=== PATIENT | female | born 1965 | race Caucasian/White ===

== ENCOUNTER → 2017-03-19 | Outpatient (CLI) | payer OTHER ==
--- NOTE | 2017-03-20 07:40 | BD ---
EXAMINATION TYPE: MG DEXA axial skeleton. DATE OF EXAM: 03/19/2017 COMPARISON: 09.18.2014 CLINICAL HISTORY: 51 YR OLD FEMALE: ICD-10 CODE: Z79.890 POST MENOPAUSAL, C50.819 OSTEOPENIA, M85 .8 Height: 62.3 Weight: 204 FRAX RISK QUESTIONS: Alcohol (3 or more units per day): NO Family History (Parent hip fracture): NO Glucocorticoids (More than 3mos): NO (Ex: prednisone, prednisolone, methylprednisolone, dexamethasone, and hydrocortisone). History of Fracture in Adulthood: NO Secondary Osteoporosis: YES 1. Type 1 Diabetes: NO 2. Hyperthyroidism: NO 3. Menopause before 45: YES 4. Malnutrition: NO 5. Chronic liver disease: NO Rheumatoid Arthritis: NO Current Tobacco Use: YES, 1/2 PAC DAILY RISK FACTORS HISTORY OF: Family History of Osteoporosis: NO Active: TRY TO BE, BACK PAIN PREVENTS Diet low in dairy products/other sources of calcium: NO Postmenopausal woman: YES, COMPLETE HYST 9 YRS AGO...AGE 42 Lost more than 2 inches in height since high school: NO Hyperparathyroidism: NO Adrenal Insufficiency: NO MEDICATIONS: Prednisone or other steroids: INHALER PRN How Long: FOR YRS Additional Medications: BP MEDS, CELEXA, CALCIUM AND VIT D, REFLUX MEDS PRN, Additional History: HYPERTENSION, HX OF BREAST CA RT BREAST X2....BILAT MASTECTOMY, NODES ON RT REMOV ED. EXAM MEASUREMENTS: Bone mineral densitometry was performed using the [employer] System. Bone mineral density as measured about the Lumbar spine is: ----- L1-L4(G/cm2): 0.985 T Score Values are as follows: ----- L1: -1.1 ----- L2: -2.5 ----- L3: -1.1 ----- L4: -2.0 ----- L1-L4: -1.6 Bone mineral density has: Decreased -2.5% since study of: 09.18.2014 Bone mineral density about the R hip (g/cm2): 0.937 Bone mineral density about the L hip (g/cm2): 0.974 T Score values are as follows: -----R Neck: -1.1 -----L Neck: -1.0 -----R Total: -0.6 -----L Total: -0.3 Bone mineral density has: Decreased -2.8% since study of: 09.18.2014 FRAX%S: THERE IS A 3.8% CHANCE FOR A MAJOR OSTEOPOROTIC FX AND A 0.4% FOR HIP FX.....PROBABILITY O F FX IN 10 YRS TIME IMPRESSION: Osteopenia lumbar spine. NOTE: T-SCORE=SD OF THE YOUNG ADULT MEAN.
== END ==
LOC: RADBDWWP 16:08
PROVIDERS: ATTEND Internal Medicine Hematology & Oncology
DX: M85.88 Other specified disorders of bone density and structure, other site (principal)
CPT/HCPCS: 77080

== ENCOUNTER 2017-07-16 08:10 | Emergency (ER) | payer OTHER ==
[2017-07-16 08:17] VITALS: RESP 18; TEMP 99.2
--- NOTE | 2017-07-16 08:36 | ED ---
General Adult HPI - General Chief complaint: Abdominal Pain Stated complaint: abd pain Time Seen by Provider: 07/16/17 08:28 Source: patient, RN notes reviewed, old records reviewed Mode of arrival: ambulatory Limitations: no limitations - History of Present Illness Initial comments: Patient's a 51-year-old female presented to the emergency room today with a chief complaint of abdominal pain on the right lower quadrant over the last 2 weeks. She states that she is been more active she's had to clean out her mother's house. She states that she began feeling some discomfort in the right lower side she was unsure if it was due to all the recent activity. She states it is worse with coughing, and certain movements. She states when she is lying still she is relatively comfortable. She does admit that she went to [facility] 2 days ago had lab work and a CT of the abdomen performed which was negative. She states that she was diagnosed with strep throat currently on amoxicillin. Patient denies any other complaints or symptoms. Patient denies any recent fever, chills, shortness of breath, chest pain, back pain, nausea or vomiting, numbness or tingling, dysuria or hematuria, constipation or diarrhea, headaches or visual changes, or any other complaints. - Related Data Home Medications Medication Instructions Recorded Confirmed Amoxicillin 500 mg PO BID 07/16/17 07/16/17 Anastrozole [Arimidex] 1 mg PO HS 07/16/17 07/16/17 Calcium Carbonate/Vitamin D3 1 tab PO HS 07/16/17 07/16/17 [Calcium 600-Vit D3 400 Caplet] Citalopram Hydrobromide [CeleXA] 40 mg PO HS 07/16/17 07/16/17 Lisinopril [Zestril] 5 mg PO HS 07/16/17 07/16/17 Loratadine 10 mg PO HS 07/16/17 07/16/17 Allergies Allergy/AdvReac Type Severity Reaction Status Date / Time erythromycin base AdvReac Nausea Verified 07/16/17 09:16 hydrocodone bitartrate AdvReac "knocks me Verified 07/16/17 09:16 [From Vicodin] out" hydromorphone HCl AdvReac Nausea Verified 07/16/17 09:16 [From Dilaudid] Review of Systems ROS Statement: Those systems with pertinent positive or pertinent negative responses have been documented in the HPI. ROS Other: All systems not noted in ROS Statement are negative. Past Medical History Past Medical History: Asthma, Cancer, Hyperlipidemia Additional Past Medical History / Comment(s): migraines, arthritis, frequent heartburn, lymphedema rt arm and hand, breast cancer History of Any Multi-Drug Resistant Organisms: None Reported Past Surgical History: Breast Surgery, Cholecystectomy, Hysterectomy, Tubal Ligation Additional Past Surgical History / Comment(s): rt breast lumpectomy Past Anesthesia/Blood Transfusion Reactions: Family History of Problems w/ Anesthesia, Postoperative Nausea & Vomiting (PONV) Additional Past Anesthesia/Blood Transfusion Reaction / Comment(s): father had cardiac arrest during a heart surgery years ago Past Psychological History: Anxiety Smoking Status: Current every day smoker Past Alcohol Use History: Rare Past Drug Use History: None Reported - Past Family History Mother Family Medical History: No Reported History General Exam - General Exam Comments Initial Comments: General: The patient is awake and alert, in no distress, and does not appear acutely ill. Eye: Pupils are equal, round and reactive to light, extra-ocular movements are intact. No nystagmus. There is normal conjunctiva bilaterally. No signs of icterus. Ears, nose, mouth and throat: There are moist mucous membranes and no oral lesions. Mild redness erythema to the posterior pharynx with positive exudate. Uvula midline. Tolerating oral secretions. Neck: The neck is supple, there is no tenderness or JVD. Cardiovascular: There is a regular rate and rhythm. No murmur, rub or gallop is appreciated. Respiratory: Lungs are clear to auscultation, respirations are non-labored, breath sounds are equal. No wheezes, stridor, rales, or rhonchi. Gastrointestinal: Abdomen soft on palpation. Does have tenderness right lower quadrant. No rebound tenderness or guarding. No CVA tenderness. Musculoskeletal: Normal ROM, no tenderness. Strength 5/5. Sensation intact. Pulses equal bilaterally 2+. Neurological: A&O x 3. CN II-XII intact, There are no obvious motor or sensory deficits. Coordination appears grossly intact. Speech is normal. Skin: Skin is warm and dry and no rashes or lesions are noted. Psychiatric: Cooperative, appropriate mood & affect, normal judgment. Limitations: no limitations Course Vital Signs 07/16/17 08:15 Temperature 99.2 F Pulse Rate 92 Respiratory 18 Rate Blood Pressure 131/77 O2 Sat by Pulse 95 Oximetry Medical Decision Making - Medical Decision Making Patient reexamined at this time shows no signs of distress. She is resting couple. Her labs were reviewed 11,000 white count today. Patient's labs and imaging report from [facility] was reviewed. It showed a fever of 102 at triage the other day. Did show a positive strep test. Has 17,[address] of the abdomen and pelvis that was performed with contrast shows no acute abnormalities. Showed a normal appendix. Patient's blood work reviewed today does show improved white count. No fever here. Is currently on antibiotics for a strep throat infection which she did test positive for the other day. At this times felt that her pain is mostly skeletal at is worse with certain movements when she coughs knees or sits up. She has been she's laying down she feels fine. Patient advised bruised area. Advised continue antibiotic as previously prescribed and follow-up family doctor over the next 2 days. - Lab Data Result diagrams: 07/16/17 09:19 07/16/17 09:19 Lab Results 07/16/17 07/16/17 07/16/17 Range/Units 08:35 08:35 09:19 WBC (3.8-10.6) k/uL RBC (3.80-5.40) m/uL Hgb (11.4-16.0) gm/dL Hct (34.0-46.0) % MCV (80.0-100.0) fL MCH (25.0-35.0) pg MCHC (31.0-37.0) g/dL RDW (11.5-15.5) % Plt Count (150-450) k/uL Neutrophils % % Lymphocytes % % Monocytes % % Eosinophils % % Basophils % % Neutrophils # (1.3-7.7) k/uL Lymphocytes # (1.0-4.8) k/uL Monocytes # (0-1.0) k/uL Eosinophils # (0-0.7) k/uL Basophils # (0-0.2) k/uL Sodium 143 (137-145) mmol/L Potassium 4.3 (3.5-5.1) mmol/L Chloride 108 H (98-107) mmol/L Carbon Dioxide 26 (22-30) mmol/L Anion Gap 9 mmol/L BUN 8 (7-17) mg/dL Creatinine 0.64 (0.52-1.04) mg/dL Est GFR (CKD-EPI)AfAm >90 (>60 ml/min/1.73 sqM) Est GFR (CKD-EPI)NonAf >90 (>60 ml/min/1.73 sqM) Glucose 90 (74-99) mg/dL Calcium 9.5 (8.4-10.2) mg/dL Total Bilirubin 0.3 (0.2-1.3) mg/dL AST 13 L (14-36) U/L ALT 25 (9-52) U/L Alkaline Phosphatase 93 (38-126) U/L Total Protein 6.7 (6.3-8.2) g/dL Albumin 4.0 (3.5-5.0) g/dL Amylase 48 (30-110) U/L Lipase 72 (23-300) U/L Urine Color Yellow Urine Appearance Cloudy H (Clear) Urine pH 8.0 (5.0-8.0) Ur Specific [place] 1.014 (1.001-1.035) Urine Protein Trace H (Negative) Urine Glucose (UA) Negative (Negative) Urine Ketones Negative (Negative) Urine Blood Trace H (Negative) Urine Nitrite Negative (Negative) Urine Bilirubin Negative (Negative) Urine Urobilinogen <2.0 (<2.0) mg/dL Ur Leukocyte Esterase Negative (Negative) Urine RBC 3 (0-5) /hpf Urine WBC 1 (0-5) /hpf Ur Squamous Epith Cells 1 (0-4) /hpf Urine Bacteria Rare H (None) /hpf Hyaline Casts 4 H (0-2) /lpf Urine Mucus Rare H (None) /hpf Urine HCG, Qual Not Detected (Not Detectd) 07/16/17 Range/Units 09:19 WBC 11.7 H (3.8-10.6) k/uL RBC 4.33 (3.80-5.40) m/uL Hgb 12.7 (11.4-16.0) gm/dL Hct 38.0 (34.0-46.0) % MCV 87.8 (80.0-100.0) fL MCH 29.3 (25.0-35.0) pg MCHC 33.3 (31.0-37.0) g/dL RDW 14.2 (11.5-15.5) % Plt Count 285 (150-450) k/uL Neutrophils % 73 % Lymphocytes % 18 % Monocytes % 5 % Eosinophils % 2 % Basophils % 0 % Neutrophils # 8.5 H (1.3-7.7) k/uL Lymphocytes # 2.2 (1.0-4.8) k/uL Monocytes # 0.6 (0-1.0) k/uL Eosinophils # 0.3 (0-0.7) k/uL Basophils # 0.0 (0-0.2) k/uL Sodium (137-145) mmol/L Potassium (3.5-5.1) mmol/L Chloride (98-107) mmol/L Carbon Dioxide (22-30) mmol/L Anion Gap mmol/L BUN (7-17) mg/dL Creatinine (0.52-1.04) mg/dL Est GFR (CKD-EPI)AfAm (>60 ml/min/1.73 sqM) Est GFR (CKD-EPI)NonAf (>60 ml/min/1.73 sqM) Glucose (74-99) mg/dL Calcium (8.4-10.2) mg/dL Total Bilirubin (0.2-1.3) mg/dL AST (14-36) U/L ALT (9-52) U/L Alkaline Phosphatase (38-126) U/L Total Protein (6.3-8.2) g/dL Albumin (3.5-5.0) g/dL Amylase (30-110) U/L Lipase (23-300) U/L Urine Color Urine Appearance (Clear) Urine pH (5.0-8.0) Ur Specific [place] (1.001-1.035) Urine Protein (Negative) Urine Glucose (UA) (Negative) Urine Ketones (Negative) Urine Blood (Negative) Urine Nitrite (Negative) Urine Bilirubin (Negative) Urine Urobilinogen (<2.0) mg/dL Ur Leukocyte Esterase (Negative) Urine RBC (0-5) /hpf Urine WBC (0-5) /hpf Ur Squamous Epith Cells (0-4) /hpf Urine Bacteria (None) /hpf Hyaline Casts (0-2) /lpf Urine Mucus (None) /hpf Urine HCG, Qual (Not Detectd) Disposition Clinical Impression: Abdominal pain Disposition: HOME SELF-CARE Condition: Good Instructions: Abdominal Pain (ED) Is patient prescribed a controlled substance at d/c from ED?: No Referrals: Miguel Mcbride MD [Primary Care Provider] - 1-2 days Time of Disposition: 10:19
[2017-07-16 08:57] LABS: Appearance,Urine Cloudy (Clear); Bacteria,Urine Rare /hpf; Bilirubin,Urine Negative (Negative); Blood,Urine Trace (Negative); Color,Urine Yellow; Glucose,Urine (UA) Negative (Negative); Hyaline Casts,Urine 4 /lpf (0-2); Ketones,Urine Negative (Negative); Leukocyte Esterase,Urine Negative (Negative); Mucus,Urine Rare /hpf; Nitrite,Urine Negative (Negative); Protein,Urine Trace (Negative); RBC,Urine 3 /hpf (0-5); Specific Gravity,Urine 1.014 (1.001-1.035); Squamous Epithelial Cell,Urine 1 /hpf (0-4); Urobilinogen,Urine <2.0 mg/dL (<2.0); WBC,Urine 1 /hpf (0-5)
[2017-07-16 09:35] LABS: Basophils % (A) 0 %; Eosinophils # (A) 0.3 k/uL (0-0.7); Eosinophils % (A) 2 %; HGB 12.7 gm/dL (11.4-16.0); Lymphocytes # (A) 2.2 k/uL (1.0-4.8); Lymphocytes % (A) 18 %; MCH 29.3 pg (25.0-35.0); MCHC 33.3 g/dL (31.0-37.0); MCV 87.8 fL (80.0-100.0); Mean Platelet Volume 6.7; Monocytes # (A) 0.6 k/uL (0-1.0); Monocytes % (A) 5 %; Neutrophils # (A) 8.5 k/uL (1.3-7.7); Neutrophils % (A) 73 %; Platelet Count 285 k/uL (150-450); RBC 4.33 m/uL (3.80-5.40); RDW 14.2 % (11.5-15.5); WBC 11.7 k/uL (3.8-10.6)
[2017-07-16 09:47] LABS: ALT 25 U/L (9-52); AST 13 U/L (14-36); Alkaline Phosphatase 93 U/L (38-126); Amylase 48 U/L (30-110); Anion Gap 9 mmol/L; Blood Urea Nitrogen 8 mg/dL (7-17); Calcium 9.5 mg/dL (8.4-10.2); Carbon Dioxide 26 mmol/L (22-30); Chloride 108 mmol/L (98-107); Glucose 90 mg/dL (74-99); Lipase 72 U/L (23-300); Potassium 4.3 mmol/L (3.5-5.1); Sodium 143 mmol/L (137-145); Total Bilirubin 0.3 mg/dL (0.2-1.3); Total Protein 6.7 g/dL (6.3-8.2)
[2017-07-16 10:34] VITALS: BP 153/77; PULSE 81
== END 2017-07-16 10:32 | disposition home or self-care (01) ==
LOC: EC 08:10
DX: R10.31 Right lower quadrant pain (principal); F41.9 Anxiety disorder, unspecified; F17.200 Nicotine dependence, unspecified, uncomplicated; Z85.3 Personal history of malignant neoplasm of breast; Z90.49 Acquired absence of other specified parts of digestive tract; Z90.710 Acquired absence of both cervix and uterus; Z98.51 Tubal ligation status; Z79.899 Other long term (current) drug therapy; Z88.1 Allergy status to other antibiotic agents; Z88.5 Allergy status to narcotic agent
CPT/HCPCS: 36415; 80053; 81001; 81025; 82150; 83690; 85025; 99284

== ENCOUNTER → 2019-03-31 | Outpatient (CLI) | payer OTHER ==
[2019-03-31 12:01] VITALS: BP 136/81; PULSE 87; RESP 20
--- NOTE | 2019-03-31 12:32 | P.PAINCN ---
History of Present Illness - Reason for Consult Consult date: 03/31/19 Back and neck pain, migraines - History of Present Illness Rosa is a 53-year-old female who presents today for a new patient consult secondary to low back pain. She reports pain across her low back with a VAS of 7 or 8 out of 10 most of the time. She finds pain with any activity but mostly with bending over. She finds pain across her low back and into both buttocks but denies any radicular symptoms down her legs, she denies any weakness or numbness or tingling in her legs or feet. She finds that this pain with standing for long present time but mostly with bending. She denies any bowel or bladder incontinence. She denies any numbness tingling or upper extremity weakness. She also reports tension across her neck and occiput along with migraine headaches 3-4 times a month. She reports she seen a neurologist for migraines in the past and was diagnosed with migraines. She is not on any type of repetitive or abortive therapy at this time. She feels his back pain is significantly inhibiting her daily activities, she has never had any injections. She has been to care process manager with transient relief. She has been in physical therapy in the past and reports that did not help and reports she still doing some of the activities daily. She reports she stays pretty active as she babysits shoulder every day. She does not have any formal exercise routine. MRI of the lumbar spine shows a normal spine from L1 through L4, there is a small grade 3 mm anterolisthesis of L5 and S1 with minimal disc bulging. There is no mention of any neural foraminal stenosis Review of Systems Negative except as mentioned in HPI Past Medical History Past Medical History: Asthma, Cancer, COPD, GERD/Reflux, Hyperlipidemia, Hypertension, Osteoarthritis (OA), Sleep Apnea/CPAP/BIPAP Additional Past Medical History / Comment(s): migraines, lymphedema rt arm and hand, breast cancer, NO C PAP MACHINE AT THIS TIME History of Any Multi-Drug Resistant Organisms: None Reported Past Surgical History: Breast Surgery, Cholecystectomy, Hysterectomy, Tubal Ligation Additional Past Surgical History / Comment(s): rt breast lumpectomy 2002, BILATERAL MASTECTOMY 2014, LYMPH NODES REMOVED FROM RIGHT ARM Past Anesthesia/Blood Transfusion Reactions: Family History of Problems w/ Anesthesia, Postoperative Nausea & Vomiting (PONV) Additional Past Anesthesia/Blood Transfusion Reaction / Comm: father had cardiac arrest during a heart surgery years ago Smoking Status: Current every day smoker - Past Family History Mother Family Medical History: No Reported History Medications and Allergies Home Medications Medication Instructions Recorded Confirmed Type Anastrozole [Arimidex] 1 mg PO HS 07/16/17 03/31/19 History Citalopram Hydrobromide [CeleXA] 40 mg PO HS 07/16/17 03/31/19 History Lisinopril [Zestril] 5 mg PO HS 07/16/17 03/31/19 History ALPRAZolam [Xanax] 0.5 mg PO BID PRN 03/25/19 03/31/19 History Acetaminophen [Tylenol Extra 1,000 mg PO Q4H PRN 03/25/19 03/31/19 History Strength] Albuterol Sulfate [Proair 2 puff INHALATION Q4H PRN 03/25/19 03/31/19 History Digihaler] Cetirizine HCl [Zyrtec] 10 mg PO DAILY 03/25/19 03/31/19 History Cyclobenzaprine [Flexeril] 10 mg PO BID 03/25/19 03/31/19 History Fluticasone Nasal [place] [Flonase 2 spr EA NOSTRIL BID 03/25/19 03/31/19 History Nasal [place]] Omeprazole 20 mg PO BID 03/25/19 03/31/19 History Sucralfate [Carafate] 1 gm PO TID 03/25/19 03/31/19 History buPROPion [Wellbutrin] 100 mg PO DAILY 03/25/19 03/31/19 History Umeclidinium [place] [Incruse 1 tab PO DAILY 03/31/19 03/31/19 History Ellipta] Allergies Allergy/AdvReac Type Severity Reaction Status Date / Time erythromycin base AdvReac Nausea Verified 07/16/17 09:16 hydromorphone HCl AdvReac Nausea Verified 07/16/17 09:16 [From Dilaudid] Physical Exam Vitals: Vital Signs Pulse Resp BP Pulse Ox 03/31/19 11:51 87 20 136/81 97 General: Awake and alert oriented 3 no distress, obese Respiratory exam: No audible wheezing no accessory muscle usage Cardiovascular exam: regular rate, palpable bilateral pulses, no lower extremity edema Abdominal exam: No distention nontender to palpation, obese Cervical spine: Normal alignment, Spurling's negative, facet loading negative, Bending Roll Operator strength is 5/5, kimble negative Lumbar spine: Obese midline, atrophy of the paraspinal muscles and gluteal muscles. There is loss of lumbar lordosis. The skin is normal and midline. There is no tenderness to palpation over the lumbar spine, no tenderness to palpation over the paraspinal muscles. Straight leg raise causes pain in the low back bilaterally but no radicular symptoms. There is good movement of the hip joints bilaterally. There is tightness in the hamstring muscles as well as in the iliotibial band. Hip flexors appear to be normal with good release. Sacroiliac joints: There is minimal tenderness over palpation of the SI joints bilaterally, Shan test positive bilateral, Gaenslen's positive bilateral. Neuro exam: Normal sensation in bilateral upper extremities, deep tendon reflexes are 2+ bilateral upper extremities. Normal sensation in bilateral lower extremities. Deep tendon reflexes are 2+ in lower extremities Psych exam: Cooperative, appropriate mood Assessment and Plan Assessment: Lumbar degenerative disc disease Sacroiliitis Obesity Plan: After review of the medical records, imaging and examination the patient I believe the patient has pain associated with lumbar degenerative disc disease and possibly sacroiliitis. At this point I have offered the patient conservative therapy which includes physical therapy, daily stretching and exercise. She has been in physical therapy without good relief as well as care process manager. She is tried conservative therapy and like to move forward with minimally invasive injections. We discussed performing a lumbar epidural steroid injection at the L5-S1 level, we discussed the procedure in detail with the patient and her son and she like to move forward with that. We'll schedule for the injection as soon as possible. If she does not have good relief from the epidural steroid injection she may benefit from sacroiliac joint injections bilaterally. PQRS Measure Charge Sheet Measure #130: Documentation of Current Meds in Medical Chart: Patient's medications documented in chart Measure #47: Advance Care Plan: Advance care planning discussed & documented, plan or surrogate given Measure #412: Opioid Treatment Agreement: No documentation of signed opioid treatment agreement Measure #408: Opioid Therapy Follow-up Evaluation: Patient had NO f/u eval minimum every 3 months during opioid therapy Measure #317: Preventitive Care & Scrn High Bld Press & F/U: Normal blood pressure, f/u not required Measure #128: Body Mass Index (BMI) Screening & Follow-up: BMI documented ABOVE normal parameters - f/u documented PQRS Narrative: Smoking Status Current every day smoker Blood Pressure 136/81 Pain Intensity [Back] 7 Scale Used Numeric (1 - 10) Hx Alcohol Use (MH) Yes: RARE Home Medications: Ambulatory Orders Anastrozole [Arimidex] 1 mg PO HS 07/16/17 Citalopram Hydrobromide [CeleXA] 40 mg PO HS 07/16/17 Lisinopril [Zestril] 5 mg PO HS 07/16/17 ALPRAZolam [Xanax] 0.5 mg PO BID PRN 03/25/19 Acetaminophen [Tylenol Extra Strength] 1,000 mg PO Q4H PRN 03/25/19 Albuterol Sulfate [Proair Digihaler] 2 puff INHALATION Q4H PRN 03/25/19 Cetirizine HCl [Zyrtec] 10 mg PO DAILY 03/25/19 Cyclobenzaprine [Flexeril] 10 mg PO BID 03/25/19 Fluticasone Nasal [place] [Flonase Nasal [place]] 2 spr EA NOSTRIL BID 03/25/19 Omeprazole 20 mg PO BID 03/25/19 Sucralfate [Carafate] 1 gm PO TID 03/25/19 buPROPion [Wellbutrin] 100 mg PO DAILY 03/25/19 Umeclidinium [place] [Incruse Ellipta] 1 tab PO DAILY 03/31/19
== END | disposition home or self-care (01) ==
LOC: PNWHC3 11:42
PROVIDERS: ATTEND Hospitalist
DX: M51.36 Other intervertebral disc degeneration, lumbar region (principal); E66.9 Obesity, unspecified; M46.1 Sacroiliitis, not elsewhere classified; F17.200 Nicotine dependence, unspecified, uncomplicated; Z68.39 Body mass index [BMI] 39.0-39.9, adult; Z79.899 Other long term (current) drug therapy; Z88.1 Allergy status to other antibiotic agents; Z88.5 Allergy status to narcotic agent
CPT/HCPCS: 99201

== ENCOUNTER → 2019-04-28 | Outpatient (CLI) | payer OTHER | END | disposition home or self-care (01) | CPT/HCPCS: 99211 ==

== ENCOUNTER 2019-07-09 12:58 | Emergency (ER) | payer OTHER ==
[2019-07-09] MEDS ORDERED: ACETAMINOPHEN TAB 500 MG TAB PO STA (13:12)
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
--- NOTE | 2019-07-09 13:43 | XR ---
EXAMINATION TYPE: XR elbow complete RT DATE OF EXAM: 07/09/2019 CLINICAL HISTORY: Pain after fall injury. TECHNIQUE: Frontal, lateral and oblique images of the right elbow are obtained. COMPARISON: None FINDINGS: There is no acute fracture/dislocation evident in the right elbow. No abnormal fat pad si gns are seen. The overlying soft tissue appears unremarkable. IMPRESSION: There is no acute fracture or dislocation in the right elbow.
[2019-07-09 14:31] VITALS: BP 130/77; PULSE 87; RESP 17; TEMP 98
== END 2019-07-09 14:31 | disposition home or self-care (01) ==
LOC: EC 12:58
DX: S50.01XA Contusion of right elbow, initial encounter (principal); J44.9 Chronic obstructive pulmonary disease, unspecified; K21.9 Gastro-esophageal reflux disease without esophagitis; I10 Essential (primary) hypertension; G47.30 Sleep apnea, unspecified; F41.9 Anxiety disorder, unspecified; F32.9 Major depressive disorder, single episode, unspecified; F17.200 Nicotine dependence, unspecified, uncomplicated; Z79.899 Other long term (current) drug therapy; Z79.51 Long term (current) use of inhaled steroids; Z88.1 Allergy status to other antibiotic agents; Z88.5 Allergy status to narcotic agent; Z99.89 Dependence on other enabling machines and devices; Z85.3 Personal history of malignant neoplasm of breast; Z90.13 Acquired absence of bilateral breasts and nipples; W01.0XXA Fall on same level from slipping, tripping and stumbling without subsequent striking against object, initial encounter; Y93.55 Activity, bike riding
CPT/HCPCS: 99283

== ENCOUNTER → 2019-07-11 | Outpatient (CLI) | payer OTHER | END | disposition home or self-care (01) | LOC: LABWHC1 14:12 | PROVIDERS: ATTEND Family Medicine | DX: Z11.59 Encounter for screening for other viral diseases (principal) ==

== ENCOUNTER 2019-07-15 07:44 | Day surgery (SDC) | payer OTHER ==
[2019-07-14 12:50] VITALS: BMI 37.5
[~2019-07-15 07:44] MED LIST: LACTATED RINGERS 1,000 ML IV SCH
[2019-07-15 08:04] VITALS: TEMP 96.7
[2019-07-15] MEDS ORDERED: LIDOCAINE 1% (10MG/ML) FOR IV START SQ ONE (08:09)
[2019-07-15] MEDS ORDERED: methylPREDNISolone ACETATE 40 MG/ML 1 ML VIAL ONE (08:14)
[2019-07-15] MEDS ORDERED: MIDAZOLAM 2 MG/2 ML VIAL ONE (08:14)
[2019-07-15] MEDS ORDERED: BUPIVACAINE (PF) 0.5% 30 ML VIAL ONE (08:14)
--- NOTE | 2019-07-15 08:15 | P.PCN ---
Date of Procedure: 07/15/19 Description of Procedure: Procedure: BILATERAL L3-4, L4-5, L5-S1 Diagnosis: Lumbar spondylosis without myelopathy Anesthesia: Local and IV conscious sedation Imaging: Fluoroscopy was used, images where saved to the medical record The patient was seen and examined in the [facility]. Procedure risks and benefits were fully reviewed with the patient. The patient understands this is a diagnostic if local only is used, as will be the case today. The goal of the procedure is to inject medication onto the medial branch or small nerves that innervate the facet joints. In this way, we can hopefully identify which of these joints, if any, may be contributing to their pain. Informed consent for procedure was obtained. The patient was taken into the office fluoroscopy procedure room and placed prone on the table. A pillow was placed under the abdomen to reduce lumbar lordosis. Vital signs were closely monitored during the procedure. The skin over the area was prepped with Betadine X 3 and draped in usual sterile manner. Sterile technique was observed throughout procedure. Under biplanar fluoroscopic guidance, the target injection area of the L4, L5, Sacral Ala were targeted. A 25 gauge 31/2 inch spinal needle was then placed at the most medial and superior aspect of the transverse process near the "eye of the Adal dog". Aspiration for blood was negative. 1 cc of 0.5% Ropivacaine was injected into the targeted areas separately. [place] were withdrawn intact. No complications were noted during the procedure. The patient tolerated the procedure well. The patient was placed in supine position and transferred to the recovery area for observation and remained stable until discharged home. Home discharge instructions were given to the patient by the staff. The patient will schedule a follow up as directed.
[2019-07-15] MEDS ORDERED: IV FLUID CONTINUATION 750 ML IV ONE (08:33)
[2019-07-15 08:56] VITALS: BP 103/72; PULSE 83; RESP 18
--- NOTE | 2019-07-15 09:05 | FL ---
EXAMINATION TYPE: FL guided pain mgmt statistic DATE OF EXAM: 07/15/2019 CLINICAL HISTORY: Low back pain. TECHNIQUE: Fluoroscopy. COMPARISON: None. FINDINGS: Fluoroscopic guidance was provided during pain relief procedure performed by Dr. Chinchilla. A total of 8 seconds of fluoroscopic time was utilized during the procedure and 5 spot images are ac quired. Images acquired shows needle localization at multiple levels of the lumbar spine. IMPRESSION: As Above.
== END 2019-07-15 09:03 | disposition home or self-care (01) ==
LOC: ORPAIN 07:44
PROVIDERS: ATTEND Hospitalist
DX: M47.816 Spondylosis without myelopathy or radiculopathy, lumbar region (principal); Z88.1 Allergy status to other antibiotic agents; Z88.5 Allergy status to narcotic agent
CPT/HCPCS: 64493; 64494; 64495; J2250; J1030; 99152

== ENCOUNTER 2019-08-05 09:30 | Day surgery (SDC) | payer OTHER ==
[2019-08-04 12:36] VITALS: BMI 37.2
[2019-08-05] MEDS ORDERED: LACTATED RINGERS 1,000 ML IV SCH (09:37)
[2019-08-05 09:48] VITALS: TEMP 96.1
[2019-08-05] MEDS ORDERED: LIDOCAINE 1% (10MG/ML) FOR IV START INTRADERMA ONE (09:55)
[2019-08-05] MEDS ORDERED: fentaNYL (PF) 50 MCG/ML 2 ML AMP ONE (10:02)
[2019-08-05] MEDS ORDERED: MIDAZOLAM 2 MG/2 ML VIAL ONE (10:02)
[2019-08-05] MEDS ORDERED: ROPIVACAINE 5MG/ML 20ML VIAL ONE (10:02)
[2019-08-05] MEDS ORDERED: methylPREDNISolone ACETATE 40 MG/ML 1 ML VIAL ONE (10:02)
[2019-08-05] MEDS ORDERED: IV FLUID CONTINUATION 1,000 ML IV ONE (10:28)
--- NOTE | 2019-08-05 10:30 | P.PCN ---
Date of Procedure: 08/05/19 Procedure(s) Performed: PREOPERATIVE DIAGNOSIS : 1- Lumbar spondylosis with Facet Arthropathy without myelopathy . POSTOPERATIVE DIAGNOSIS: 1- Lumbar spondylosis with Facet Arthropathy without myelopathy . PROCEDURE: Diagnostic bilateral L3 , L4 , and L5 medial branch block under fluoroscopy guidance(fluoroscopy images available in the radiology Department ) ( To target the facet joint between L4-5 , and L5-S1 ) ANESTHESIA:, moderate sedation with intravenous Versed 2 mg and Fentanyl 50 mcg. EBL: Minimal COMPLICATION: None. IV FLUIDS: 100 mL of normal saline. PROCEDURE INDICATION: Chronic low back pain secondary to Facet arthropathy unresponsive to conservative treatment. PROCEDURE DESCRIPTION: the patient was seen and identified in the preop holding area , risks and benefits and possible complications of the procedure and alternative were discussed with the patient, and the patient agreed to proceed with the procedure and signed the consent IV was started and vital signs monitored during the procedure and fluoroscopy was used to maximize the benefit and accuracy of the needle placement, and sedation was given to decrease patient anxiety, patient was taken to the procedure room and placed in prone position vital signs monitored in the back prepped with chlorhexidine X3 then under strict sterile technique using a right oblique fluoroscopy ,the junction of the transverse process and the superior articulating process of the right L3 , L4 , and L5 vertebra which corresponding to the fluoroscopy image of the eye of the Adal dog on the block side for the medial branches and subsequently , after local infiltration of skin and subcu tissuies with Ropivacaine 0.5 % , one mL at each level ,then 22-gauge Quincke-type 3.5 inches long needles , 3 needle was used , each one of them placed at the junction of the base of the transverse process and the superior articular process at the appropriate level, and the needle was advanced until the periosteum contacted, needle placement confirmed with AP oblique and lateral view and after appropriate needle placement confirmed, and after negative aspiration for heme and CSF and there was no paresthesia 1-1/2 mL of Ropivacaine 0.5% mixed with 20 mg Depo-Medrol , then half mL injected at each level after negative aspiration the needle subsequently removed and the same procedure repeated for the left side at left side at L3 , L4 and L5 levels. At the end of the procedure and the needles removed and a bandage applied after the skin was cleaned the cleaning solution patient taken to recovery room in stable condition and monitors in the recovery room for 20-30 minutes and discharged home in stable condition after discharge criteria met and patient will follow up with the pain clinic in 2-4 weeks
[2019-08-05 10:53] VITALS: BP 123/78; PULSE 67; RESP 18
--- NOTE | 2019-08-05 10:54 | FL ---
EXAMINATION TYPE: FL guided pain mgmt statistic DATE OF EXAM: 08/05/2019 CLINICAL HISTORY: Low back pain. TECHNIQUE: Fluoroscopy. COMPARISON: None. FINDINGS: Fluoroscopic guidance was provided during pain relief procedure performed by Dr. Persaud . A total of 39 seconds of fluoroscopic time was utilized during the procedure and four spot intraop erative fluoroscopic images are acquired. Images acquired shows needle localization at several leve ls in the lumbar spine bilaterally. IMPRESSION: As Above.
== END 2019-08-05 11:01 | disposition home or self-care (01) ==
LOC: ORPAIN 09:30
PROVIDERS: ATTEND Specialist
DX: G89.29 Other chronic pain (principal); M47.816 Spondylosis without myelopathy or radiculopathy, lumbar region; M51.36 Other intervertebral disc degeneration, lumbar region; Z88.1 Allergy status to other antibiotic agents; Z88.5 Allergy status to narcotic agent
CPT/HCPCS: 64493; 64494; J2250; J1030; J3010; J2795; 99152

== ENCOUNTER → 2019-08-14 | Outpatient (CLI) | payer OTHER ==
--- NOTE | 2019-08-14 09:37 | BD ---
EXAMINATION TYPE: Axial Bone Density DATE OF EXAM: 08/14/2019 COMPARISON: NONE CLINICAL HISTORY: 53-year-old female C50.819, breast cancer Height: 62.5 IN Weight: 206 LBS FRAX RISK QUESTIONS: Secondary Osteoporosis: 3. Menopause before 45: YES AGE 42 TOTAL HYST Current Tobacco Use: YES RISK FACTORS HISTORY OF: Active: YES Postmenopausal woman: AGE 42 TOTAL HYST MEDICATIONS: Additional Medications: CALCIUM, VIT D, BLOOD PRESSURE MED, FLEXERIL, CELEXA, XANAX, TYLENOL, INHALER , ANTIDEPRESSANT, HEARTBURN MEDS, FLONASE, ARIMIDEX Additional History: BREAST CANCER TWICE EXAM MEASUREMENTS: Bone mineral densitometry was performed using the [employer] System. Bone mineral density as measured about the Lumbar spine is: ----- L1-L4(G/cm2): 0.902 T Score Values are as follows: ----- L2: -2.2 ----- L3: -2.4 ----- L4: -2.8 ----- L2-L4: -2.5 Bone mineral density has: Decreased -8.0% since study of: 03/19/2017 Bone mineral density about the R hip (g/cm2): 0.852 Bone mineral density about the L hip (g/cm2): 0.899 T Score values are as follows: -----R Neck: -1.3 -----L Neck: -1.0 -----R Total: -0.6 -----L Total: -0.4 Bone mineral density has: Decreased -1.2% since study of: 03/19/2017 IMPRESSION: Osteoporosis (T Score less than -2.5) as measured in the lumbar spine (averaged L2-L4). There is increased fracture risk and therapy is usually indicated based on age. Re-Screen 1-2 years. NOTE: T-SCORE=SD OF THE YOUNG ADULT MEAN.
== END | disposition home or self-care (01) ==
LOC: RADBDWWP 08:08
PROVIDERS: ATTEND Internal Medicine Hematology & Oncology
DX: M81.0 Age-related osteoporosis without current pathological fracture (principal); C50.819 Malignant neoplasm of overlapping sites of unspecified female breast; Z88.1 Allergy status to other antibiotic agents
CPT/HCPCS: 77080

== ENCOUNTER → 2019-08-27 | Outpatient (CLI) | payer OTHER ==
[2019-08-27 09:29] VITALS: PULSE 82; RESP 16
[2019-08-27 09:37] VITALS: BP 90/58
--- NOTE | 2019-08-27 09:46 | P.PAINPG ---
Subjective Progress Note Date: 08/27/19 This is a follow-up visit for this 53 years old female with a chronic history of severe low back pain she is diagnosed with lumbar degenerative disc disease and lumbar spondylosis and lumbar facet arthropathy, previously we have done diagnostic medial branch block lumbar area at L3 , -L4 and L5, the first diagnostic block was 07/15/2019, she reported that her pain was 8/10 before the block dropped to 0/10 after the block and the pain relief was for one full day, and the second diagnostic block was done 08/05/2019 , and she reported her pain was 8/10 before the block and up to 2-3 after the block, and she got relief lasted for 1-2 days, she continued to have severe low back pain the pain is constant and increases with any activity , he denies any motor or sensory deficit she denies any fever or night sweats she denies any change in the bowel movement or urination Objective - Vital Signs Vital signs: Vital Signs Temp Pulse 82 08/27/19 09:23 Resp 16 08/27/19 09:23 BP 90/58 08/27/19 09:23 Pulse Ox 96 08/27/19 09:23 - Exam Physical Examinations : -Constitutiona : Cooperative , not in acute distress . -HEENT : nech : supple , no Lymphadenopathy , normal thyroid size . : eyes : no ptosis , no icterus, no photophobia . - neurologic : Cranial nerve II to XII intact , no focal neurological deffecit . -psychatric : alert , oriented X 3 , appropriate affect , intact judgment and insight . -Lymphatic : no Lymphadenopathy . - musculoskeltal : Lumber spine moter stegnth lower extremities ,thigh and legs 5/5 Right side , 5/5 Left side deep tendon reflexes : normal Knee Jerk , normal ankle Jerk lumber facet Loading Test =positive Right , positive Left Range of motion of the lumbar spine Flexion 30 degrees, extension 10 degrees strait leg raising test = positive at 45 degree on the left side ,and is negative on the right side Fabere test= negative Right , and negative LT . Moderate tenderness over the Sacroiliac joint on the Right , and Left sides Gaenslen test= positive right ,and positive left . Seated flexion test= positive right ,and positive Left . Assessment and Plan Plan: Assessment and plan=1-Lumbar spondylosis with lumbar facet arthropathy without myelopathy 2-lumbar degenerative disc disease. The patient had positive results after 2 diagnostic medial branch block, and she will be good candidate to have RFA of the medial branch lumbar area at L3, L4, L5, procedure risk and benefits and alternatives discussed with the patient she agreed with proceeding Time with Patient: Less than 30 PQRS Measure Charge Sheet Measure #130: Documentation of Current Meds in Medical Chart: Patient's medications documented in chart Measure #226: Tobacco Use: Screen & Cessation Intervention: Pt screened for tobacco use AND intervention given Measure #111: Pneumonia Vaccination: Pneumococcal vaccine NOT administered or previously given Measure #47: Advance Care Plan: Advance care planning discussed & documented, pt chose/unable to give Measure #412: Opioid Treatment Agreement: No documentation of signed opioid treatment agreement Measure #408: Opioid Therapy Follow-up Evaluation: Patient had NO f/u eval minimum every 3 months during opioid therapy Measure #317: Preventitive Care & Scrn High Bld Press & F/U: Normal blood pressure, f/u not required Measure #128: Body Mass Index (BMI) Screening & Follow-up: BMI documented ABOVE normal parameters - f/u documented Measure #131: Pain Assessment & Follow-up: Pain positive & plan documented, Follow-up scheduled Measure #431: Unhealthy Alcohol Use Preventative Care & Scrn: Patient not identified as an unhealthy alcohol user PQRS Narrative: Smoking Status Current every day smoker Blood Pressure 90/58 Pain Intensity [Lower Back] 9 Scale Used Numeric (1 - 10) Hx Alcohol Use (MH) Yes: RARE Home Medications: Ambulatory Orders Anastrozole [Arimidex] 1 mg PO HS 07/16/17 Citalopram Hydrobromide [CeleXA] 40 mg PO HS 07/16/17 Lisinopril [Zestril] 5 mg PO HS 07/16/17 ALPRAZolam [Xanax] 0.5 mg PO BID PRN 03/25/19 Acetaminophen [Tylenol Extra Strength] 1,000 mg PO Q4H PRN 03/25/19 Albuterol Sulfate [Proair Digihaler] 2 puff INHALATION Q4H PRN 03/25/19 Cetirizine HCl [Zyrtec] 10 mg PO DAILY 03/25/19 Cyclobenzaprine [Flexeril] 10 mg PO BID 03/25/19 Fluticasone Nasal [place] [Flonase Nasal [place]] 2 spr EA NOSTRIL BID 03/25/19 Omeprazole 20 mg PO BID 03/25/19 Sucralfate [Carafate] 1 gm PO TID 03/25/19 buPROPion [Wellbutrin] 100 mg PO DAILY 03/25/19 Umeclidinium [place] [Incruse Ellipta] 1 inhalation PO QAM 03/31/19 Controlled Substance Measures - Controlled Substance Measures Is patient prescribed a controlled substance at discharge?: No
== END | disposition home or self-care (01) ==
LOC: PNWHC3 09:18
PROVIDERS: ATTEND Specialist
DX: M51.36 Other intervertebral disc degeneration, lumbar region (principal); M47.816 Spondylosis without myelopathy or radiculopathy, lumbar region; M46.96 Unspecified inflammatory spondylopathy, lumbar region; Z79.891 Long term (current) use of opiate analgesic; Z79.899 Other long term (current) drug therapy
CPT/HCPCS: 99211

== ENCOUNTER 2019-09-11 09:50 | Day surgery (SDC) | payer OTHER ==
[2019-09-09 08:54] VITALS: BMI 40.3
[2019-09-11] MEDS ORDERED: LACTATED RINGERS 1,000 ML IV SCH (09:55)
[2019-09-11 10:10] VITALS: RESP 16; TEMP 97.6
[2019-09-11] MEDS ORDERED: LIDOCAINE 1% (10MG/ML) FOR IV START INTRADERMA ONE (10:19)
[2019-09-11] MEDS ORDERED: LIDOCAINE 4% (PF) 5 ML AMP ONE (10:50)
[2019-09-11] MEDS ORDERED: fentaNYL (PF) 50 MCG/ML 2 ML AMP ONE (10:50)
[2019-09-11] MEDS ORDERED: MIDAZOLAM 2 MG/2 ML VIAL ONE (10:50)
--- NOTE | 2019-09-11 11:22 | P.PCN ---
Date of Procedure: 09/11/19 Procedure(s) Performed: PREOPERATIVE DIAGNOSIS: Lumbar Spondylosis POSTOPERATIVE DIAGNOSIS: Same PROCEDURES: Radiofrequency ablation of the L3, L4, L5 medial branches with fluoroscopic guidance on the bilateral sides SURGEON: Lashawn Barba MD. ANESTHESIA: Lidocaine 1% 5 mL, Moderate sedation with intravenous Versed and fentanyl, sedation time 25 minutes EBL: Minimal Fluoroscopy was used for the procedure and images were saved in the radiology portion of the chart. PROCEDURE INDICATION: The patient with low back pain secondary to lumbar facet arthropathy who had more than 50% relief of pain with previous diagnostic lumbar medial branch block X2. PROCEDURE DESCRIPTION / TECHNIQUE: The patient was seen and identified in the preoperative area. Risks, benefits, complications, including but not limited to risk of infection ,bleeding , allergic reactions to the medications and incomplete pain relief , and alternatives were discussed with the patient, the patient agreed to proceed with the procedure and signed the consent. IV was started. The operative site was marked. Patient was taken to the OR and time out was completed. The patient was placed in the prone position on the procedure table. The lumbar area was prepped and draped in the usual sterile fashion. . Vital signs were closely monitored during the procedure .IV sedation was used during the procedure to decrease patients anxiety. Using AP and then oblique fluoroscopy, the "eye of the Adal dog" corresponding to the connection between the superior and transverse articular processes of the bilateral L4 and L5 as well as the sacral ala were identified, marked, and localized with 1% lidocaine. Subsequently, an 18 guage 150 mm radiofrequency cannula with a 10-mm active tip was advanced guided by fluoroscopy to the identified target at each site. Needle positioning was confirmed on AP, oblique and lateral fluoroscopy. Motor testing at 2.5 Hz was done with paraspinal muscle stimulation only, and no radicular symptoms down the legs. Then 1 mL of 4% lidocaine was injected in each site. Radiofrequency thermocoagulation at 80 degrees celsius for 90 seconds was then performed. [place] were removed. Sterile dressings were applied. COMPLICATIONS: No acute complications. DISPOSITION / PLANS: The patient was placed in a supine position and transferred to the recovery area in a stable condition for observation and was discharged from the recovery room after meeting discharge criteria. Home dischar ge instructions given to the patient by the staff. The patient will follow up in clinic in 4 weeks.
[2019-09-11] MEDS ORDERED: IV FLUID CONTINUATION 1,000 ML IV ONE (11:28)
[2019-09-11 11:41] VITALS: BP 128/84; PULSE 77
--- NOTE | 2019-09-11 12:19 | FL ---
Fluoroscopy HISTORY: Pain 15 seconds fluoroscopy time supplied to the referring clinician. 5 intraoperative C-arm images docum ent the procedure. See dictated report from anesthesia.
== END 2019-09-11 12:16 | disposition home or self-care (01) ==
LOC: ORPAIN 09:50
PROVIDERS: ATTEND Anesthesiology
DX: M47.816 Spondylosis without myelopathy or radiculopathy, lumbar region (principal); Z88.1 Allergy status to other antibiotic agents; Z88.5 Allergy status to narcotic agent
CPT/HCPCS: 64635; 64636; J2001; J2250; J3010; 99152; 99153

== ENCOUNTER → 2019-10-22 | Outpatient (CLI) | payer OTHER ==
[2019-10-22 08:44] VITALS: BP 116/72; PULSE 84; RESP 14; TEMP 98.1
--- NOTE | 2019-10-22 09:04 | P.PAINPG ---
Subjective Progress Note Date: 10/22/19 This is a follow-up visit for this 53 years old female with a chronic history of severe low back pain, he is diagnosed with lumbar degenerative disc disease, lumbar spondylosis with lumbar facet arthropathy, and sacroiliitis, status post RFA of the medial branch lumbar area, currently she is complaining of severe low back pain mainly in the buttock area, with radiation to the posterior aspect of both thighs, the pain is constant and increases with any activity, she denies any motor or sensory deficit she denies any change in the bowel movements or urination, no fever or night sweats Objective - Vital Signs Vital signs: Vital Signs Temp 98.1 F 10/22/19 08:38 Pulse 84 10/22/19 08:38 Resp 14 10/22/19 08:38 BP 116/72 10/22/19 08:38 Pulse Ox 97 10/22/19 08:38 - Exam Physical Examinations : -Constitutiona : Cooperative , not in acute distress . -HEENT : nech : supple , no Lymphadenopathy , normal thyroid size . : eyes : no ptosis , no icterus, no photophobia . - neurologic : Cranial nerve II to XII intact , no focal neurological deffecit . -psychatric : alert , oriented X 3 , appropriate affect , intact judgment and insight . -Lymphatic : no Lymphadenopathy . - musculoskeltal : . Lumber spine moter stegnth lower extremities ,thigh and legs 5/5 Right side , 5/5 Left side deep tendon reflexes : normal Knee Jerk , normal ankle Jerk lumber facet Loading Test =positive Right , positive Left Range of motion of the lumbar spine Flexion 30 degrees, extension 10 degrees strait leg raising test = positive at 60 degree Fabere test= positive Right , and positive LT . Sever tenderness over the Sacroiliac joint on the Right , and Left sides Gaenslen test= positive right ,and positive left . Seated flexion test= positive right ,and positive Left . Assessment and Plan Plan: Assessment and plan=1-lumbar degenerative disc disease. 2-lumbar spondylosis with lumbar facet arthropathy without myelopathy. 3-bilateral sacroiliitis. Patient continued to have low back pain after RFA of the medial branch lumbar area, she could benefit from bilateral sacroiliac joint steroid injection, procedure, risk, benefits and alternatives discussed with the patient and she agreed with proceeding Time with Patient: Less than 30 PQRS Measure Charge Sheet Measure #130: Documentation of Current Meds in Medical Chart: Patient's medications documented in chart Measure #226: Tobacco Use: Screen & Cessation Intervention: Pt screened for tobacco use AND intervention given Measure #111: Pneumonia Vaccination: Pneumococcal vaccine NOT administered or previously given Measure #47: Advance Care Plan: Advance care planning discussed & documented, pt chose/unable to give Measure #412: Opioid Treatment Agreement: No documentation of signed opioid treatment agreement Measure #408: Opioid Therapy Follow-up Evaluation: Patient had NO f/u eval minimum every 3 months during opioid therapy Measure #317: Preventitive Care & Scrn High Bld Press & F/U: Normal blood pressure, f/u not required Measure #128: Body Mass Index (BMI) Screening & Follow-up: BMI documented ABOVE normal parameters - f/u documented Measure #131: Pain Assessment & Follow-up: Pain positive & plan documented, Follow-up scheduled Measure #431: Unhealthy Alcohol Use Preventative Care & Scrn: Patient not identified as an unhealthy alcohol user PQRS Narrative: Smoking Status Current every day smoker Blood Pressure 116/72 Pain Intensity [Lower Back] 7 Scale Used Numeric (1 - 10) Hx Alcohol Use (MH) Yes: RARE Home Medications: Ambulatory Orders Anastrozole [Arimidex] 1 mg PO HS 07/16/17 Citalopram Hydrobromide [CeleXA] 40 mg PO HS 07/16/17 lisinopriL [Zestril] 5 mg PO HS 07/16/17 ALPRAZolam [Xanax] 0.5 mg PO BID PRN 03/25/19 Acetaminophen [Tylenol Extra Strength] 1,000 mg PO Q4H PRN 03/25/19 Albuterol Sulfate [Proair Digihaler] 2 puff INHALATION Q4H PRN 03/25/19 Cetirizine HCl [Zyrtec] 10 mg PO DAILY 03/25/19 Cyclobenzaprine [Flexeril] 10 mg PO BID 03/25/19 Fluticasone Nasal [place] [Flonase Nasal [place]] 2 spr EA NOSTRIL BID 03/25/19 Omeprazole 20 mg PO BID 03/25/19 Sucralfate [Carafate] 1 gm PO TID 03/25/19 buPROPion [Wellbutrin] 100 mg PO DAILY 03/25/19 Umeclidinium [place] [Incruse Ellipta] 1 inhalation PO QAM 03/31/19 Calcium Carbonate [Calcium] 600 mg PO BID 09/11/19 Controlled Substance Measures - Controlled Substance Measures Is patient prescribed a controlled substance at discharge?: No
== END | disposition home or self-care (01) ==
LOC: PNWHC3 08:25
PROVIDERS: ATTEND Specialist
DX: M51.36 Other intervertebral disc degeneration, lumbar region (principal); M47.816 Spondylosis without myelopathy or radiculopathy, lumbar region; M46.96 Unspecified inflammatory spondylopathy, lumbar region; M46.1 Sacroiliitis, not elsewhere classified; F17.200 Nicotine dependence, unspecified, uncomplicated; Z79.899 Other long term (current) drug therapy; Z79.891 Long term (current) use of opiate analgesic
CPT/HCPCS: 99211

== ENCOUNTER 2019-11-11 06:07 | Day surgery (SDC) | payer OTHER ==
[2019-11-07 13:24] VITALS: BMI 37.8
[2019-11-11 06:24] VITALS: TEMP 96.9
[2019-11-11] MEDS ORDERED: MIDAZOLAM 2 MG/2 ML VIAL ONE (06:49)
[2019-11-11] MEDS ORDERED: ROPIVACAINE 5MG/ML 20ML VIAL ONE (06:49)
[2019-11-11] MEDS ORDERED: methylPREDNISolone ACETATE 40 MG/ML 1 ML VIAL ONE (06:49)
[2019-11-11] MEDS ORDERED: fentaNYL (PF) 50 MCG/ML 2 ML AMP ONE (06:49)
--- NOTE | 2019-11-11 07:16 | P.PCN ---
Date of Procedure: 11/11/19 Procedure(s) Performed: Procedure= bilateral sacroiliac joints steroid injection under fluoroscopy guidance (fluoroscopy image stored on file in the radiology Department ) Preoperative diagnosis= 1-bilateral sacroiliitis 2-lumbar degenerative disc disease 3-lumbar spondylosis with facet arthropathy Postoperative diagnosis=Same as preop Diagnosis . Complication = none Condition= stable Anesthesia= moderate sedation with intravenous Versed 2 mg , and fentanyl 50 micrograms . Indication for the procedure= patient complaining of low back pain , examination was positive for severe tenderness over the sacroiliac joints bilaterally and patient diagnosed with sacroiliitis, for this reason he/ she was good candidate for sacroiliac joint steroid injection. Description of the procedure= procedure risk and benefits discussed with the patient, including but not limited, risk of infection and bleeding, and ALLERGIC reaction to the medication and not complete pain relief and patient agreed with the preceding patient taken to the operating room, placed in prone position or standard monitors applied to the patient then after induction of anesthesia back prepped with chlorhexidine 3 times , Then under strict sterile technique, first I did the right sacroiliac joint the which was identified under fluoroscopy guidance been local infiltration of the skin and subcu interstitial with lidocaine 1% then 22-gauge Quincke Needle advanced slowly under fluoroscopy and placed in the right sacroiliac joint needle placement confirmed with AP and oblique and lateral view and after appropriate needle placement confirmed and after negative aspiration, or heme , then Ropivacaine 0.5% 3 mL, and 40 mg of Depo-Medrol mixed together and injected in the right sacroiliac joint after negative aspiration patient tolerated the procedure well without any complication. Then the left sacroiliac joint steroid injection done under strict sterile technique local infiltration of the skin and subcu interstitial at the location of the left sacroiliac joint then a 22-gauge Quincke Needle advanced slowly unde r fluoroscopy time placed in the left sacroiliac joint, needle placement confirmed with AP and oblique and lateral view then after appropriate needle placement confirmed and after negative aspiration 0.5% Marcaine 3 mL and 40 mg of Depo-Medrol injected in the left sacroiliac joint after negative aspiration patient tolerated the procedure well that any complications and she will follow up in clinic 3 weeks
[2019-11-11 07:20] VITALS: RESP 16
--- NOTE | 2019-11-11 07:33 | FL ---
EXAMINATION TYPE: FL guided pain mgmt statistic DATE OF EXAM: 11/11/2019 HISTORY: Fluoroscopy time 12 seconds of fluoroscopy provided. IMPRESSION: 1. Fluoroscopy time.
[2019-11-11 07:38] VITALS: BP 135/92; PULSE 79
[2019-11-11] MEDS ORDERED: IV FLUID CONTINUATION 1,000 ML IV ONE (07:41)
== END 2019-11-11 08:40 | disposition home or self-care (01) ==
LOC: ORPAIN 06:07
PROVIDERS: ATTEND Specialist
DX: M46.1 Sacroiliitis, not elsewhere classified (principal); M51.36 Other intervertebral disc degeneration, lumbar region; M47.896 Other spondylosis, lumbar region; Z88.8 Allergy status to other drugs, medicaments and biological substances; Z88.1 Allergy status to other antibiotic agents; Z88.5 Allergy status to narcotic agent; Z90.710 Acquired absence of both cervix and uterus
CPT/HCPCS: J2250; J1030; J3010; J2795; G0260; 99152

== ENCOUNTER 2021-03-30 07:10 | Day surgery (SDC) | payer OTHER ==
--- NOTE | 2021-03-28 12:28 | P.HPOR ---
History of Present Illness H&P Date: 03/28/21 Chief Complaint: Left small finger mucous cyst Subjective: This is a 55 year old female that presents today for initial evaluation regarding painful left small finger mass that has been present for 2-3 months. She states it is painful and she bumps it several times a day resulting in swelling and discomfort. She denies any injury or paresthesias. Physical Examination: LUE: AIN/PIN/Radial/Ulnar/Median motor intact. Radial/Ulnar/Median SILT. 2+/4 Radial/Ulnar pulses palpated. 5/5 APB, 5/5 FDI. Negative Finkelsteins, negative CMC grind, negative Durkan's compression. 5mm mucous cyst over ulnar boarder on dorsal aspect of left small finger overlying DIP joint. No open wound or signs of infection. Imaging: X-Rays of the left finger demonstrate advanced degenerative changes at the DIP joint with joint space narrowing, dorsal osteophyte present. 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 Plan: Diagnosis and treatment options were discussed with the patient. She would like to have the mass excised since it is causing her pain and discomfort on a daily basis. Risks and benefit of surgery including bleeding, infection, damage to surrounding tissue, need for further surgery, possible recurrence were discussed and the patient wished to go forward with surgery. She will obtain PCP clearance and we will schedule surgery for left small finger mucous cyst excision with dorsal osteophyte excision in the near future. -Erickson Dang DO Orthopedic Hand/Upper Extremity Surgeon Past Medical History Past Medical History: Asthma, Cancer, COPD, GERD/Reflux, Hyperlipidemia, Hypertension, Osteoarthritis (OA), Sleep Apnea/CPAP/BIPAP Additional Past Medical History / Comment(s): Migraines, lymphedema right arm and hand, hx breast cancer, NO CPAP MACHINE AT THIS TIME, arthritis bilateral hands and right shoulder,osteoporosis History of Any Multi-Drug Resistant Organisms: None Reported Past Surgical History: Breast Surgery, Cholecystectomy, Hysterectomy, Tubal Ligation Additional Past Surgical History / Comment(s): Right breast lumpectomy ,, BILATERAL MASTECTOMY, LYMPH NODES REMOVED FROM RIGHT ARM. Past Anesthesia/Blood Transfusion Reactions: Family History of Problems w/ Anesthesia, Postoperative Nausea & Vomiting (PONV) Additional Past Anesthesia/Blood Transfusion Reaction / Comment(s): Father had c ardiac arrest during a heart surgery years ago. Smoking Status: Current every day smoker - Past Family History Mother Family Medical History: No Reported History Medications and Allergies Home Medications Medication Instructions Recorded Confirmed Type Anastrozole [Arimidex] 1 mg PO HS 07/16/17 11/07/19 History Citalopram Hydrobromide [CeleXA] 40 mg PO HS 07/16/17 11/07/19 History lisinopriL [Zestril] 5 mg PO HS 07/16/17 11/07/19 History ALPRAZolam [Xanax] 0.5 mg PO BID PRN 03/25/19 11/07/19 History Acetaminophen [Tylenol Extra 1,000 mg PO Q4H PRN 03/25/19 11/07/19 History Strength] Albuterol Sulfate [Proair 2 puff INHALATION Q4H PRN 03/25/19 11/11/19 History Digihaler] Cetirizine HCl [Zyrtec] 10 mg PO DAILY 03/25/19 11/07/19 History Cyclobenzaprine [Flexeril] 10 mg PO BID 03/25/19 11/07/19 History Fluticasone Nasal [place] [Flonase 2 spr EA NOSTRIL BID 03/25/19 11/07/19 History Nasal [place]] Omeprazole 20 mg PO BID 03/25/19 11/07/19 History Sucralfate [Carafate] 1 gm PO TID 03/25/19 11/07/19 History buPROPion [Wellbutrin] 100 mg PO DAILY 03/25/19 11/07/19 History Umeclidinium [place] [Incruse 1 puff PO QAM 03/31/19 11/07/19 History Ellipta] Calcium Carbonate [Calcium] 600 mg PO BID 09/11/19 11/07/19 History Allergies Allergy/AdvReac Type Severity Reaction Status Date / Time sumatriptan [From Imitrex] Allergy Nausea & Verified 11/11/19 06:15 Vomiting erythromycin base AdvReac Nausea Verified 11/11/19 06:15 hydromorphone HCl AdvReac Nausea Verified 11/11/19 06:15 [From Dilaudid] Physical Examination Osteopathic Statement: *. No significant issues noted on an osteopathic structural exam other than those noted in the History and Physical/Consult.
[2021-03-30 07:53] VITALS: TEMP 97.9
[2021-03-30] MEDS ORDERED: ONDANSETRON 4 MG/2 ML VIAL ONE (07:55)
[2021-03-30] MEDS ORDERED: LIDOCAINE 1% (10MG/ML) FOR IV START INTRADERMA ONE (08:03)
[2021-03-30] MEDS ORDERED: LACTATED RINGERS 1,000 ML IV ONE (08:03)
[2021-03-30] MEDS ORDERED: DEXAMETHASONE SOD PHOSPHATE 4 MG/ML 1 ML VIAL IV ONE (08:04)
[2021-03-30] MEDS ORDERED: ONDANSETRON 4 MG/2 ML VIAL IVP ONE (08:05)
[2021-03-30] MEDS ORDERED: LIDOCAINE 1% INJ 10MG/ML (20 ML MDV) SQ ONE ×2 (08:15→08:26)
[2021-03-30] MEDS ORDERED: MIDAZOLAM 2 MG/2 ML VIAL ONE (08:15)
[2021-03-30] MEDS ORDERED: PROPOFOL 10 MG/ML 20 ML VIAL IV ONE (08:15)
[2021-03-30] MEDS ORDERED: BUPIVACAINE (PF) 0.5% 30 ML VIAL SQ ONE ×2 (08:15→08:26)
[2021-03-30] MEDS ORDERED: fentaNYL (PF) 50 MCG/ML 2 ML AMP ONE (08:15)
[2021-03-30] MEDS ORDERED: IV FLUID CONTINUATION 1,000 ML IV ONE ×3 (08:58)
[2021-03-30 09:19] VITALS: BP 111/71; PULSE 69; RESP 16
--- NOTE | 2021-03-30 21:33 | P.OP ---
Date of Procedure: 03/30/21 Preoperative Diagnosis: 1.) Left small finger mucous cyst 2.) Left small finger DIP joint arthritis Postoperative Diagnosis: 1.) Left small finger mucous cyst 2.) Left small finger DIP joint arthritis Procedure(s) Performed: 1.) Left small finger mucous cyst excision. 2.) Left small finger DIP joint dorsal osteophyte excision. Anesthesia: MAC Surgeon: Erickson Dang [employer] Operator #1: Gaurav Arteaga Estimated Blood Loss (ml): 0 Pathology: none sent Condition: stable Disposition: PACU Description of Procedure: This is a 55 year old female who presents today for a left small finger mucous cyst excision. Risks and benefits of surgery were discussed with the patient including bleeding, damage to surrounding tissue, infection, need for further surgery as well as risks of anesthesia including pulmonary embolism and even and the patient wished to proceed with surgical intervention. The patient was seen in the pre-operative area by myself. Consent and H&P were completed and updated. The correct extremity was marked in the pre-operative area by myself and all other questions were answered. Operative Narrative: The patient was brought to the operating room by the department of anesthesia. They remained on the portable stretcher and a rolling hand table was brought to the side of the operative extremity. Pre-operative time out was performed indicating the correct patient, procedure and laterality. All in the room agreed. Pre-operative antibiotics were given prior to skin incision. MAC anesthesias was utilized and a digital nerve block of left small finger was performed with 9 cc's of a 50:50 mixture of 1% lidocaine and 0.5% bupivicaine. The patient was then drifted off to sleep by the department of anesthesia. A sirena melanie drain was the utilized as a finger tourniquet. An H type incision was made over the distal phalanx of the left small finger. Blunt dissection was taken down to subcutaneous tissues and the the terminal extensor tendon was identified and protected. Mucous cyst was evacuated and deco mpressed. Dorsal osteophytes both radially and ulnarly were excised with rongeur taking care to preserve the collateral ligaments of the DIP joint. The wound was then irrigated. Closure was performed with 4-0 nylon sutures and a sterile dressing consisting of adaptic, 4x4s, kerlix wrap and an jyotsna wrap was applied. The finger tourniquet was let down and the finger had normal perfusion. The patient was then woken by the department of anesthesia and transferred to PACU in stable condition. Erickson Dang D.O. Orthopedic Hand/Upper Extremity Surgeon
== END 2021-03-30 09:40 | disposition home or self-care (01) ==
LOC: OR 07:10
PROVIDERS: ATTEND Orthopaedic Surgery Hand Surgery
DX: M71.342 Other bursal cyst, left hand (principal); M25.742 Osteophyte, left hand
CPT/HCPCS: 26160; J2250; J1100; J0690; J2405; J2001; J3010; J2704

== ENCOUNTER → 2021-08-16 | Outpatient (CLI) | payer OTHER ==
--- NOTE | 2021-08-16 17:40 | BD ---
EXAMINATION TYPE: Axial Bone Density DATE OF EXAM: 08/16/2021 CLINICAL HISTORY: 55 years year old Female. ICD-10 CODE: C50.819 breast ca, Z79.890 post menopausal Height: 5 FT 2 IN Weight: 194 FRAX RISK QUESTIONS: Alcohol (3 or more units per day): NO Family History (Parent hip fracture): NO Glucocorticoids (More than 3mos): NO (Ex: prednisone, prednisolone, methylprednisolone, dexamethasone, and hydrocortisone). History of Fracture in Adulthood: NO Secondary Osteoporosis: 1. Type 1 Diabetes: NO 2. Hyperthyroidism: NO 3. Menopause before 45: YES 4. Malnutrition: NO 5. Chronic liver disease: NO Rheumatoid Arthritis: NO Current Tobacco Use: YES RISK FACTORS HISTORY OF: Surgery to Spine/Hip(right/left)/Wrist (right/left): NO Family History of Osteoporosis: NO Active: YES Diet low in dairy products/other sources of calcium: NO Postmenopausal woman: YES Take estrogen and/or progesterone medications: NO Lost more than 2 inches in height since high school: NO Frequent falls: NO Poor Health: FAIR Hyperparathyroidism: NO Adrenal Insufficiency: NO MEDICATIONS: Additional Medications: CALCIUM, VIT D, BLOOD PRESSURE MEDS, FLEXERIL, CELEXA, XANAX, TYLENOL, INHALE R FOR COPD, ANTIDEPRESSANT, OMEPRAZOLE, FLONASE, ARIMIDEX Additional History: BREAST CANCER 2015 HAVEN MASTECTOMY EXAM MEASUREMENTS: Bone mineral densitometry was performed using the Open-Plug System. Bone mineral density as measured about the Lumbar spine is: ----- L1-L4(G/cm2): 0.959 T Score Values are as follows: ----- L1: -1.4 ----- L2: -2.2 ----- L3: -2.1 ----- L4: -1.7 ----- L1-L4: -1.8 Bone mineral density has: INCREASED 6.2 % since study of: 2019 Bone mineral density about the R hip (g/cm2): 0.800 Bone mineral density about the L hip (g/cm2): 0.819 T Score values are as follows: -----R Neck: -1.7 -----L Neck: -1.6 -----R Total: -0.7 -----L Total: -0.4 Bone mineral density has: DECREASED -1.1 % since study of: 2019 FRAX%s: The graph provided illustrates a 6.5 % chance for a major osteoporotic fx and a 1.0 % chance for the hips probability for fx in 10 years time. IMPRESSION: Osteopenia (T Score between -2.5 and -1). There is slightly increased risk of fracture and the patient may be considered for treatment. Re-Screen 2-5 years. NOTE: T-SCORE=SD OF THE YOUNG ADULT MEAN.
== END | disposition home or self-care (01) ==
LOC: RADBDWWP 09:43
PROVIDERS: ATTEND Internal Medicine Hematology & Oncology
DX: R92.8 Other abnormal and inconclusive findings on diagnostic imaging of breast (principal); Z79.890 Hormone replacement therapy; Z78.0 Asymptomatic menopausal state
CPT/HCPCS: 77080